=== PATIENT | female | born 1960 | race Caucasian/White ===

== ENCOUNTER → 2020-03-21 | Outpatient (CLI) | payer OTHER ==
[~2020-03-21] MED LIST: ADDAPRIN200 MG PO; ALLERGY RELIEF10 M1 PO; ELIQUIS 2.5 MG2.5 MG GT; OXYCODON-ACETA1 EAC1 PO; TYLENOL 500 MG500 MG PO; VITAMIN A10000 UNI1 PO; VITAMIN B-121000 MC3 PO; VITAMIN D350 MC3 PO; VITAMIN E100 UNIT PO; ZANAFLEX 4 MG TA4 MG PO
[2020-03-21 14:00] LABS: HEMOGLOBIN 12.6 gm/dl (12.3-15.3); RED BLOOD COUNT 4.51 M/UL (4.00-5.10); WHITE BLOOD COUNT 6.6 K/UL (4.5-11.0)
[2020-03-21 14:18] LABS: BUN/CREATININE RATIO 15 (0-10)
== END ==
LOC: OPSV2 11:00 → EDSTATUS 13:00 → OPSV2 13:00
PROVIDERS: Orthopaedic Surgery
DX: Z01.818 Encounter for other preprocedural examination (principal); M16.11 Unilateral primary osteoarthritis, right hip; R94.31 Abnormal electrocardiogram [ECG] [EKG]
CPT/HCPCS: 36415; 80048; 85025; 87077; 87081; 87086; 87186; 93005

== ENCOUNTER → 2020-04-02 | Outpatient (CLI) | payer OTHER ==
[2020-04-02 15:49] LABS: BUN/CREATININE RATIO 15 (0-10)
== END ==
LOC: LAB 14:01
PROVIDERS: Orthopaedic Surgery
DX: Z01.812 Encounter for preprocedural laboratory examination (principal); M16.11 Unilateral primary osteoarthritis, right hip
CPT/HCPCS: 36415; 80048; 86850; 86900; 86901

== ENCOUNTER 2020-04-03 07:08 | Inpatient (IN) | payer OTHER ==
[~2020-04-03] VITALS: Ht 172.7 cm; Wt 70.3 kg
[2020-04-03] MEDS ORDERED: ADDAPRIN200 MG PO (07:50)
[2020-04-03] MEDS ORDERED: ALLERGY RELIEF10 M1 PO (07:51)
[2020-04-03] MEDS ORDERED: TYLENOL 500 MG500 MG PO (07:51)
[2020-04-03] MEDS ORDERED: ELIQUIS 2.5 MG2.5 MG GT (08:24)
[2020-04-03] MEDS ORDERED: OXYCODON-ACETA1 EAC1 PO (08:24)
[2020-04-03] MEDS ORDERED: VITAMIN B-121000 MC3 PO (17:07)
[2020-04-03] MEDS ORDERED: VITAMIN D350 MC3 PO (17:08)
[2020-04-03] MEDS ORDERED: VITAMIN E100 UNIT PO (17:08)
[2020-04-03] MEDS ORDERED: VITAMIN A10000 UNI1 PO (17:09)
[2020-04-04 03:23] LABS: HEMOGLOBIN 8.8 gm/dl (12.3-15.3); RED BLOOD COUNT 3.14 M/UL (4.00-5.10); WHITE BLOOD COUNT 8.1 K/UL (4.5-11.0)
[2020-04-04 03:42] LABS: BUN/CREATININE RATIO 17 (0-10)
[2020-04-04] MEDS ORDERED: ZANAFLEX 4 MG TA4 MG PO (07:48)
== END 2020-04-04 15:19 | disposition home or self-care (01) | DRG 470 ==
LOC: ZOBSOF 07:08 → M/S 16:46
PROVIDERS: ADMIT Orthopaedic Surgery
PROC: 0QR407Z Replacement of Right Acetabulum with Autologous Tissue Substitute, Open Approach (ICD-10-PCS; 2020-04-03)
PROC: 0SR90JA Replacement of Right Hip Joint with Synthetic Substitute, Uncemented, Open Approach (ICD-10-PCS; principal; 2020-04-03 08:15)
DX: M06.851 Other specified rheumatoid arthritis, right hip (principal); M24.7 Protrusio acetabuli; Z88.0 Allergy status to penicillin
CPT/HCPCS: 36415; 71045; 73501; 73502; 76000; 80048; 85027; 86850; 86900; 86901; 87086; 97110-GP-CQ; 97116-GP-CQ; 97162; 97165; 97535; C1713; C1776; J0171; J0592; J0690; J1100; J2250; J2370; J2704; J2795; J7050; J7120

== ENCOUNTER → 2020-08-02 | Outpatient (CLI) | payer OTHER ==
[2020-08-02 15:28] LABS: HEMOGLOBIN 10.9 gm/dl (12.3-15.3); RED BLOOD COUNT 4.63 M/UL (4.00-5.10); WHITE BLOOD COUNT 5.6 K/UL (4.5-11.0)
[2020-08-02 15:52] LABS: BUN/CREATININE RATIO 13 (0-10)
[2020-08-03 12:11] LABS: ANTISTREPTOLYSIN O AB 87.4 IU/mL (0.0-200.0); COMPLEMENT C3, SERUM 169 mg/dL (82-167); COMPLEMENT C4, SERUM 24 mg/dL (12-38); RHEUMATOID ARTHRITIS FACTOR 415.3 IU/mL (0.0-13.9)
[2020-08-03 14:12] LABS: ANTI-DSDNA ANTIBODIES <1 IU/mL (0-9); ANTICHROMATIN ANTIBODIES <0.2 AI (0.0-0.9)
[2020-08-04 00:07] LABS: CCP ANTIBODIES IGG/IGA 49 units (0-19)
== END ==
LOC: LAB 14:19
PROVIDERS: Orthopaedic Surgery
DX: M06.9 Rheumatoid arthritis, unspecified (principal)
CPT/HCPCS: 36415; 80053; 84550; 85027; 85652; 86038; 86060; 86140; 86160; 86200; 86225; 86431

== ENCOUNTER → 2020-08-07 | Outpatient (CLI) | payer OTHER | LOC: EXRD 15:09 | DX: M11.20 Other chondrocalcinosis, unspecified site (principal); M06.9 Rheumatoid arthritis, unspecified; M19.071 Primary osteoarthritis, right ankle and foot; M19.072 Primary osteoarthritis, left ankle and foot | CPT/HCPCS: 73130; 73630 ==